=== PATIENT | female | born 1970 | race Caucasian/White ===

== ENCOUNTER 2024-09-16 06:49 | Day surgery (SDC) | payer OTHER ==
[2024-09-15 12:36] VITALS: BMI 21.7
[2024-09-16 09:55] VITALS: RESP 16; TEMP 97.8
[2024-09-16 10:26] VITALS: BP 106/57; PULSE 58
== END 2024-09-16 10:45 | disposition home or self-care (01) ==
LOC: JASU-ENDO 06:49
PROVIDERS: ATTEND Internal Medicine Gastroenterology
PROC: 0DJD8ZZ Inspection of Lower Intestinal Tract, Via Natural or Artificial Opening Endoscopic (ICD-10-PCS; principal; 2024-09-16 09:30)
DX: Z12.11 Encounter for screening for malignant neoplasm of colon (principal); K64.8 Other hemorrhoids
CPT/HCPCS: 81025